=== PATIENT | male | born 2000 | race Caucasian/White ===

== ENCOUNTER 2022-12-31 11:24 | Emergency (ER) | payer MEDICAID, SELFPAY ==
[2022-12-31 11:27] VITALS: BP 136/82; PULSE 87; RESP 14; TEMP 36.7; O2SAT 99
[2022-12-31 13:15] VITALS: BP 158/72; PULSE 72; RESP 14; O2SAT 99
--- NOTE | 2022-12-31 15:33 | ED.GENADUL_ITS ---
Discharge Plan Disposition Patient Disposition: Home Discharge Details Clinical Impression: Contact dermatitis Primary Care Provider: Unknown,Unknown ED Provider: Dinah Villanueva Home Meds and New Rx's Prescriptions: New prednisone 10 mg tablet 10 mg PO DAILY Qty: 38 0RF Discharge Instructions Instructions: Dermatitis (ED) Additional Instructions: Take Zyrtec or Claritin daily You may take 25 to 50 mg of Benadryl at night Is her allergy medication and somehow break the cycle of allergy Take the prednisone as prescribed, if you find that you are having difficulty tolerating the prednisone and you have taken it for longer than 5 days I recommend tapering it and half slowly over the course of several days You may apply calamine lotion Please return should you develop new or worsening complaints Discharge Data Discharge Date/Time-TO BE ENTERED AT DEPARTURE: 12/31/22 13:17 Medical Decision Making 22-year-old male presents with diffuse itchy rash Papular appearance consistent with contact dermatitis no overlying erythema, no drainage on right lower extremity, left lower extremity, and right upper extremity, no evidence of oral involvement or facial involvement, placed on prednisone taper for 14 days we will use calamine lotion and Zyrtec at home Return precautions reviewed and patient expressed understanding No acute distress, return precautions reviewed HPI General Date/Time Provider Initiated Documentation: 12/31/22 12:31 . HPI Narrative: This 22-year-old male presents with report of red rash to right leg which is spread to right upper arm and left leg. He states he was fishing and thinks he was exposed to poison suzette. He describes the rash as itchy. He denies any associated pain. Related Data Home Medications Medication Instructions Recorded Confirmed prednisone 10 mg tablet 10 mg PO DAILY #38 tabs 12/31/22 Previous Rx's Medication Instructions Recorded prednisone 10 mg tablet 10 mg PO DAILY #38 tabs 12/31/22 Allergies Allergy/AdvReac Type Severity Reaction Status Date / Time No Known Allergies Allergy Unverified 12/31/22 11:31 General Stated Complaint: RashLesion GEOFF: 5 PFSH All Active Problems (Updated 12/31/22 @ 13:07 by PRADEEP Wright) Contact dermatitis (Acute) Social History Smoking/Tobacco Use Status: Never Smoking risk assessment performed?: Yes Alcohol Intake: current Alcohol Intake frequency: a few times a week Alcohol type: beer Drug use: Occasionally Substance use type: does not use Course Vital Signs Vital signs: Vital Signs Temperature 36.7 C 12/31/22 11:27 Pulse 87 12/31/22 11:27 Respiratory Rate 14 12/31/22 11:27 Blood Pressure 136/82 12/31/22 11:27 Pulse Oximetry 99 12/31/22 11:27 Temperature 36.7 C 12/31/22 11:27 Temperature Source Skin 12/31/22 11:27 Pulse 72 12/31/22 13:15 Respiratory Rate 14 12/31/22 13:15 Respiratory Effort Normal, Non-Labored 12/31/22 12:40 Blood Pressure 158/72 H 12/31/22 13:15 Blood Pressure Position Sitting 12/31/22 11:27 Pulse Oximetry 99 12/31/22 13:15 Oxygen Delivery Method Room Air 12/31/22 11:27 Oxygen Flow Rate 0 12/31/22 11:27 Pain Level 4 12/31/22 11:27 PAWSS Have you Been Recently Intoxicated or Drunk Within the Last 30 days?: Yes Have you Ever Experienced Previous Episodes of Alcohol Withdrawal?: No Have you ever Experienced Withdrawal Seizures?: No Have you ever Experienced Delirium Tremens(DT)s?: No Have you ever undergone Alcohol Rehabilitation Treatment (i.e, inpt ot outpatient treatment programs)?: No Have you ever Experienced Blackouts?: No Have you ever Combined Alcohol with other Downers within the last 90 days?: No Have you ever Combined Alcohol with any other Substance of Abuse during the last 90 days?: No Positive Blood Alcohol level on Presentation? [PCS.BAL]: Unable to Obtain Evidence of Increased Autonomic Activity (i.e. HR>120, tremor, sweating, agitation, nausea)?: No Result: 1
== END 2022-12-31 13:17 | disposition home or self-care (01) ==
PROVIDERS: Emergency Provider Physician Assistant
DX: L25.9 Unspecified contact dermatitis, unspecified cause (principal)
CPT/HCPCS: 99282